=== PATIENT | female | born 2000 | race Two or more races ===

== ENCOUNTER 2023-03-11 22:50 | Emergency (ER) | payer OTHER ==
[~2023-03-11] VITALS: Ht 154.9 cm; Wt 50.8 kg
== END 2023-03-12 03:57 | disposition home or self-care (01) ==
LOC: EMR PED 22:50 → ER 22:50 → EMR PED 23:00
DX: J06.9 Acute upper respiratory infection, unspecified (principal)

== ENCOUNTER 2024-01-19 06:01 | Emergency (ER) | payer OTHER ==
[~2024-01-19] VITALS: Ht 154.9 cm; Wt 50.3 kg
[2024-01-19] MEDS ORDERED: DEXAMETHASONE SODIUM PHOSPHATE 4 MG/ML VIAL IM STA (09:04)
[2024-01-19] MEDS ORDERED: DEXAMETHASONE SODIUM PHOSPHATE 4 MG/ML VIAL ONE (09:07)
[2024-01-19 09:37] LABS: HEMOGLOBIN 13.2 g/dL (12.0-15.00); MEAN CELL VOLUME 83.5 fL (80.00-100.00); MEAN CORPUSCULAR HEMOGLOBIN 28.3 pg (27.00-32.0); MEAN CORPUSCULAR HGB CONC 33.9 g/dl (32.0-36.0); PLATELET COUNT 257 K/uL (150-450); RED BLOOD COUNT 4.67 M/uL (4.00-6.00); RED CELL DISTRIBUTION WIDTH 13.4 % (11.5-14.5)
== END 2024-01-19 13:08 | disposition home or self-care (01) ==
LOC: ER 06:03
PROVIDERS: General Practice
DX: B34.9 Viral infection, unspecified (principal); Z20.822 Contact with and (suspected) exposure to COVID-19